=== PATIENT | male | born 1955 | race Caucasian/White ===

== ENCOUNTER → 2017-01-03 | Outpatient (CLI) | payer BC, OTHER ==
--- NOTE | 2017-01-03 09:53 | REP ---
Clinical: Pain with recent trauma. Technique: Internal rotation, external rotation, and Y view of the left shoulder. 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 Findings include cortical irregularity and spurring at the acromioclavicular joint as well as blunting to the glenoid rim and subtle cortical irregularity at the humeral tuberosity. Subacromial space is normal. No periarticular calcifications are identified. No acute fracture or dislocation. Impression: Early moderate arthritic degenerative changes. Signed by Iván Barajas MD 01/03/2017 09:45 A
== END ==
LOC: M WUC 09:23
PROVIDERS: ATTEND Physician Assistant
DX: M25.512 Pain in left shoulder (principal); M19.012 Primary osteoarthritis, left shoulder

== ENCOUNTER → 2019-02-01 | Outpatient (REF) | payer BC ==
[2019-02-01 17:38] LABS: PERCENT SATURATION 15.9 % (19.7-50.0)
== END ==
LOC: M LAB REF 17:07
PROVIDERS: ATTEND Nurse Practitioner Family
DX: D64.9 Anemia, unspecified (principal)

== ENCOUNTER → 2019-03-17 | Outpatient (REF) | payer BC | LOC: M LAB REF 10:18 | PROVIDERS: ATTEND Physician Assistant | DX: M54.5 Low back pain (principal) ==

== ENCOUNTER → 2019-08-08 | Outpatient (CLI) | payer BC, MEDICARE ==
[~2019-08-08] VITALS: Ht 182.9 cm; Wt 122.5 kg
[~2019-08-08] MED LIST: ALBUTEROL SULFATE 2.5 MG/0.5 ML INH NEB SOLN As Ordered ONE; ALBUTEROL SULFATE 2.5 MG/0.5 ML INH NEB SOLN INH ONE; AMIL5TAB4 PO; AMLO10TA5 PO; ASPI81TA85 PO; ATOR40TA75 PO; LABE200T32 PO; LIDOCAINE 1% MDV 20ML VIAL SQ PRN; LIDOCAINE 2% INJ 100 MG/5 ML SDV (FOR ANES.) As Ordered ONE; LISI40TA PO; LR 1,000 ML IV ONE; MIDAZOLAM INJ 2 MG/2 ML VIAL (J2250) As Ordered ONE; OMEP-218 PO; ONDANSETRON 4MG/2ML VIAL (J2405) As Ordered ONE; ROCURONIUM BROMIDE 50 MG/5 ML VIAL As Ordered ONE; ceFAZolin SOD 1 GM in D5W MINI-BAG PLUS 50 ML IV ONE; ceFAZolin SOD 2 GM in IV 1 EA IV ONE; dexameTHASONE 4 MG/ML 1ML VIAL (J1100) As Ordered ONE; fentaNYL 250 MCG/5 ML INJECTION (J3010) As Ordered ONE; propofoL 200 MG/20 ML VIAL As Ordered ONE
[2019-08-08 06:51] VITALS: BP 103/57
== END ==
LOC: M OR 05:54 → UNDOADMIN 05:54 → M LAB 05:54 → EDSTATUS 07:30
PROVIDERS: ATTEND Urology
DX: N28.89 Other specified disorders of kidney and ureter (principal)
CPT/HCPCS: 36415; 86850; 86900; 86901; J2250; J3010

== ENCOUNTER 2019-09-05 05:44 | Inpatient (IN) | payer MEDICARE ==
[2019-09-05] VITALS (8 sets, daily range): BP systolic 117–148; BP diastolic 71–77
[~2019-09-05] VITALS: Ht 182.9 cm; Wt 125.2 kg
[~2019-09-05 05:44] MED LIST changes: -ALBUTEROL SULFATE 2.5 MG/0.5 ML INH NEB SOLN As Ordered ONE; -ALBUTEROL SULFATE 2.5 MG/0.5 ML INH NEB SOLN INH ONE; -LIDOCAINE 1% MDV 20ML VIAL SQ PRN; -LIDOCAINE 2% INJ 100 MG/5 ML SDV (FOR ANES.) As Ordered ONE; -LR 1,000 ML IV ONE; -MIDAZOLAM INJ 2 MG/2 ML VIAL (J2250) As Ordered ONE; -ONDANSETRON 4MG/2ML VIAL (J2405) As Ordered ONE; -ROCURONIUM BROMIDE 50 MG/5 ML VIAL As Ordered ONE; -ceFAZolin SOD 1 GM in D5W MINI-BAG PLUS 50 ML IV ONE; -ceFAZolin SOD 2 GM in IV 1 EA IV ONE; -dexameTHASONE 4 MG/ML 1ML VIAL (J1100) As Ordered ONE; -fentaNYL 250 MCG/5 ML INJECTION (J3010) As Ordered ONE; -propofoL 200 MG/20 ML VIAL As Ordered ONE
[2019-09-05] MEDS ORDERED: ceFAZolin SOD 1 GM in D5W MINI-BAG PLUS 50 ML IV ONE ×8 (06:00)
[2019-09-05] MEDS ORDERED: ceFAZolin SOD 2 GM in IV 1 EA IV ONE ×6 (06:00)
[2019-09-05] MEDS ORDERED: LR 1,000 ML IV ONE (06:00)
[2019-09-05 06:29] LABS: INR 0.99; PROTHROMBIN TIME 12.8 SECONDS (11.8-14.0)
[2019-09-05 06:30] LABS: PARTIAL THROMBOPLASTIN TIME 59.1 SECONDS (25.0-38.4)
[2019-09-05 06:39] LABS: BLOOD UREA NITROGEN 16 MG/DL (7-18); CALCIUM LEVEL 8.7 MG/DL (8.8-10.2); CARBON DIOXIDE LEVEL 27 MEQ/L (21-32); CHLORIDE LEVEL 109 MEQ/L (98-107); CREATININE FOR GFR 0.93 MG/DL (0.70-1.30); GLOMERULAR FILTRATION RATE > 60.0 (>49); GLUCOSE, FASTING 144 MG/DL (70-100); POTASSIUM SERUM 4.2 MEQ/L (3.5-5.1); SODIUM LEVEL 139 MEQ/L (136-145)
[2019-09-05] MEDS ORDERED: QC A650T3 PO (06:41)
[2019-09-05] MEDS ORDERED: MIDAZOLAM INJ 2 MG/2 ML VIAL (J2250) As Ordered ONE (06:50)
[2019-09-05] MEDS ORDERED: ROCURONIUM BROMIDE 50 MG/5 ML VIAL As Ordered ONE ×3 (06:51→10:20)
[2019-09-05] MEDS ORDERED: ONDANSETRON 4MG/2ML VIAL (J2405) As Ordered ONE (06:51)
[2019-09-05] MEDS ORDERED: SUGAMMADEX SODIUM 500 MG/5 ML VIAL (BRIDION) As Ordered ONE (06:51)
[2019-09-05] MEDS ORDERED: dexameTHASONE 4 MG/ML 1ML VIAL (J1100) As Ordered ONE ×2 (06:51→08:09)
[2019-09-05] MEDS ORDERED: LIDOCAINE 2% INJ 100 MG/5 ML SDV (FOR ANES.) As Ordered ONE ×2 (06:51→06:52)
[2019-09-05] MEDS ORDERED: fentaNYL 250 MCG/5 ML INJECTION (J3010) As Ordered ONE (06:51)
[2019-09-05] MEDS ORDERED: ACETAMINOPHEN 1000MG 100ML IV BTL (OFIRMEV) (J0131 PER 10MG) As Ordered ONE (06:52)
[2019-09-05] MEDS ORDERED: propofoL 200 MG/20 ML VIAL As Ordered ONE (06:52)
[2019-09-05] MEDS ORDERED: ePHEDrine SULFATE 25 MG/5 ML(5MG/ML) SYRINGE As Ordered ONE ×3 (06:52→11:39)
[2019-09-05] MEDS ORDERED: PHENYLephrine HCL 500 MCG/5 ML (100MCG/ML) SYRINGE (J2370) As Ordered ONE ×3 (06:52→11:39)
[2019-09-05] MEDS ORDERED: LIDOCAINE 1% SDV INJ 30 ML VIAL As Ordered ONE (07:13)
[2019-09-05] MEDS ORDERED: BUPIVACAINE HCL 0.25% 30 ML VIAL As Ordered ONE (07:13)
[2019-09-05] MEDS ORDERED: ACETAMINOPHEN TAB 650MG DOSE (2X325MG) PO PRN (07:45)
[2019-09-05] MEDS ORDERED: ONDANSETRON 4MG/2ML VIAL (J2405) IV PRN ×2 (07:45→13:00)
[2019-09-05] MEDS ORDERED: MORPHINE 2 MG/ML 1ML VIAL (J2270) IV PRN ×2 (07:45→13:00)
[2019-09-05] MEDS ORDERED: GLYCOPYRROLATE INJ 0.2 MG/ML 2 ML VIAL As Ordered ONE (08:22)
[2019-09-05] MEDS ORDERED: MANNITOL 25% 12.5 GM/50 ML VIAL (J2150) As Ordered ONE (08:35)
[2019-09-05] MEDS ORDERED: fentaNYL 100 MCG/2 ML INJECTION (J3010) IV PRN (13:00)
[2019-09-05] MEDS ORDERED: PERCOCET 5MG/325MG TAB PO PRN (13:00)
[2019-09-05] MEDS ORDERED: LR 1,000 ML IV SCH (13:00)
[2019-09-05 13:10] LABS: HEMATOCRIT 42.9 % (42.0-52.0); HEMOGLOBIN 13.8 g/dl (13.5-17.5); MEAN CORPUSCULAR HEMOGLOBIN 29.2 pg (27.0-33.0); MEAN CORPUSCULAR HGB CONC 32.2 g/dl (32.0-36.5); MEAN CORPUSCULAR VOLUME 90.9 fl (80.0-96.0); PLATELET COUNT, AUTOMATED 246 10^3/uL (150-450); RED BLOOD COUNT 4.72 10^6/uL (4.30-6.10)
[2019-09-05 13:35] LABS: CALCIUM LEVEL 8.7 MG/DL (8.8-10.2); CREATININE FOR GFR 1.28 MG/DL (0.70-1.30); GLOMERULAR FILTRATION RATE 59.9 (>49); POTASSIUM SERUM 4.5 MEQ/L (3.5-5.1)
--- NOTE | 2019-09-05 14:09 | ROOPDOC ---
[facility] Report Of Operation Report of Operation DATE OF PROCEDURE: 09/05/19 PREPROCEDURE DIAGNOSES: Left Renal Neoplasm. POSTPROCEDURE DIAGNOSES: Left Renal Neoplasm. PROCEDURE: Left Robotic-assisted Laparoscopic Partial Nephrectomy with Intraoperative Ultrasound for Tumor Mapping. SURGEON: Abril Lam MD BILL PEDDLER: None ANESTHESIA: General OPERATIVE INDICATIONS: This is a 64 year old male with a 2.2cm enhancing solid left renal neoplasm concerning for malignancy. He was brought to the operating room today for treatment. DESCRIPTION OF PROCEDURE: The patient was brought to the operating room and general anesthesia was induced. Prophylactic antibiotics were infused. A Saha catheter was placed under sterile conditions. The patient was then placed in the right lateral decubitus position. All pressure points were appropriately padded and an axillary roll was placed. He was secured to the table with tape. The patient was then prepped and draped in the usual sterile fashion. The initial incision was for an 8mm port in line with the 11th rib along the lateral rectus margin. A Veress needle was then utilized to achieve the pneumoperitoneum. An 8mm port was then placed in through this incision and through which the camera was inserted. There were no injuries from Veress needle placement or initial trocar placement. The remaining ports were then placed under vision. The left hand robotic port was placed along the costal margin in line with the camera port. Two right hand robotic ports were placed with one just inferior to the camera port, and the other between the anterior-superior iliac spine and the u mbilicus. A 12mm entry level assistant manager port was placed in between the camera port and the more cephalad right hand robotic port. The robot was then docked. We started by dissecting the left colon and the spleen off of Gerota's fascia. At this point the left gonadal vein was identified. This was followed cephalad until the left renal vein was encountered. This was carefully dissected and just inferior and posterior to the renal vein, the left renal artery was identified. This was carefully dissected. Next I had our small arms artillery repairer administer 12.5g of mannitol. Gerota's fascia was then opened and I defatted the kidney. On the superior and posterior aspect of the kidney the tumor was seen. It was mostly exophytic. Ultrasound was then utilized to randy the boundaries of the mass. Next 2 bulldog clamps were placed on the renal artery. We then began resecting the mass. The mass was resected completely and it appeared that we had a good margin. Once the mass was removed, the renorrhaphy was performed first by ligating all vessels in the base of resection with a 2-0 vicryl suture using figure of eight stitches. The capsule of the kidney was then reapproximated using 0-vicryl suture with Weck clips to cinch down the suture. Once this was done the clamps were removed and hemostasis was excellent. The warm ischemia time was 23 minutes. Next Reece was applied to the resection bed and the tumor was placed in an endocatch bag. A Junaid Neal drain was positioned just medial to the kidney. The robot was undocked after confirming hemostasis within the abdomen. The specimen was removed from the abdomen through the 12mm entry level assistant manager port site. A Sam fascial closure devise was utilized to place #0 Vicryl ties through the fascia of the entry level assistant manager port site. We then removed all the ports under direct vision and there was no bleeding from any of the port sites. At this point, all the incisions were thoroughly irrigated. We then closed the skin of each site using a running #4-0 subcuticular Monocryl stitch. The Junaid Neal drain was secured to the skin usint #3-0 Ethilon suture. Local anesthetic was then applied to each incision and Dermabond was then applied and this marked the conclusion of the procedure. The patient was then taken out of the left lateral decubitus position, awakened from anesthesia and transported to the recovery room in stable condition. ESTIMATED BLOOD LOSS: 100 mL INTRAOPERATIVE COMPLICATIONS: None SPECIMENS: Left renal neoplasm WARM ISCHEMIA TIME: 23 minutes NORMAL LEFT RENAL PARENCHYMA SPARED: approximately 95% PLAN: The patient will be admitted to the hospital postoperatively and he will be discharged home once his renal function is stable and he is tolerating a regular diet. ABRIL LAM MD Sep 05, 2019 13:06
[2019-09-05] MEDS: NS 1,000 ML IV SCH (14:23)
[2019-09-05] MEDS: ceFAZolin SOD 1 GM in D5W MINI-BAG PLUS 50 ML IV SCH ×2 (16:22→23:32)
[2019-09-05] MEDS: PERCOCET 5MG/325MG TAB PO PRN (19:37)
[2019-09-05] MEDS: aMILoride 5 MG TAB PO SCH (20:25)
[2019-09-05] MEDS: LABETALOL 200 MG TAB PO SCH (20:26)
[2019-09-05] MEDS: DOCUSATE SODIUM 100 MG CAP PO SCH (20:26)
[2019-09-05] MEDS: lisinopriL 40 MG TAB PO SCH (20:26)
[2019-09-06] VITALS (7 sets, daily range): BP systolic 136–165; BP diastolic 69–82
[2019-09-06] MEDS: PERCOCET 5MG/325MG TAB PO PRN ×3 (01:53→18:50)
[2019-09-06] MEDS: NS 1,000 ML IV SCH (04:52)
[2019-09-06 06:21] LABS: HEMATOCRIT 43.2 % (42.0-52.0); HEMOGLOBIN 14.2 g/dl (13.5-17.5); MEAN CORPUSCULAR HEMOGLOBIN 30.1 pg (27.0-33.0); MEAN CORPUSCULAR HGB CONC 32.9 g/dl (32.0-36.5); MEAN CORPUSCULAR VOLUME 91.5 fl (80.0-96.0); PLATELET COUNT, AUTOMATED 254 10^3/uL (150-450); RED BLOOD COUNT 4.72 10^6/uL (4.30-6.10); WHITE BLOOD COUNT 18.8 10^3/uL (4.0-10.0)
[2019-09-06 06:46] LABS: BLOOD UREA NITROGEN 14 MG/DL (7-18); CALCIUM LEVEL 8.8 MG/DL (8.8-10.2); CARBON DIOXIDE LEVEL 28 MEQ/L (21-32); CHLORIDE LEVEL 106 MEQ/L (98-107); GLOMERULAR FILTRATION RATE > 60.0 (>49); GLUCOSE, FASTING 135 MG/DL (70-100); POTASSIUM SERUM 4.9 MEQ/L (3.5-5.1); SODIUM LEVEL 138 MEQ/L (136-145)
--- NOTE | 2019-09-06 08:31 | IPNPDOC ---
Subjective Review oF Systems Chief Complaint The patient is a 64-year-old male admitted with a reason for visit of Renal Mass. Events since Last Encounter No acute events o/n. Good pain control. Ambulated last night w/o difficulty. No n/v. No f/c/ns. Objective Physical Examination General Exam: Alert, Cooperative, No Acute Distress ABDOMEN EXAM: Soft, Tenderness (mild), Other (incisions clean/dry/intact; KATHERINE w/ serosanguinous output) Neuro Exam: Normal Speech Psych Exam: Mental status NL, Mood NL Other physical findings catheter draining clear urine Vital Signs/I&O Vital Signs Date Time Temp Pulse Resp B/P (MAP) Pulse Ox O2 Delivery O2 Flow Rate FiO2 09/06/19 07:10 18 09/06/19 06:00 97.4 77 139/72 (94) 98 Nasal Cannula 2.0 I&O- Last 24 Hours up to 6 AM 09/06/19 05:59 Intake Total 2650 ml Output Total 1880 ml Balance 770 ml Laboratory Data Labs 24H Laboratory Tests 2 09/05/19 12:53: Nucleated Red Blood Cells % (auto) 0.0, Anion Gap 6L, Glomerular Filtration Rate 59.9, Calcium Level 8.7L 09/06/19 05:56: Nucleated Red Blood Cells % (auto) 0.0, Anion Gap 4L, Glomerular Filtration Rate > 60.0, Calcium Level 8.8 CBC/BMP Laboratory Tests 09/05/19 12:53 09/06/19 05:56 Assessment/Plan Date Seen The patient was seen on 09/06/19. Patient Summary This is a 64 y/o M POD1 s/p L robotic partial nephrectomy. Doing well. Hb stable at 14.2. Cr 1. Good UOP. Plan/VTE VTE Prophylaxis Ordered?: Yes VTE Exclusion Mechanical Proph: N/A:VTE Prophy Ordered VTE Exclusion Pharmacological: N/A:VTE Prophy Ordered Plan/Urinary Catheter Urinary Catheter: D/C Saha Plan - d/c Saha - start prophylactic lovenox - cont home meds - d/c IVF - strict I/Os - percocet prn pain - SCDs when in bed - ambulate - advance diet as tolerated - likely discharge home tomorrow if Hb remains stable on lovenox ABRIL LAM MD Sep 06, 2019 08:31
[2019-09-06] MEDS: aMILoride 5 MG TAB PO SCH ×2 (09:11→20:23)
[2019-09-06] MEDS: DOCUSATE SODIUM 100 MG CAP PO SCH ×2 (09:11→20:24)
[2019-09-06] MEDS: OMEPRAZOLE 20 MG CAP PO SCH (09:11)
[2019-09-06] MEDS: ENOXAPARIN 40 MG/0.4 ML SYRINGE (J1650) SC SCH (09:11)
[2019-09-06] MEDS: amLODIPine 10 MG TAB PO SCH (12:13)
[2019-09-06] MEDS: LABETALOL 200 MG TAB PO SCH ×2 (12:13→20:24)
[2019-09-06] MEDS: lisinopriL 40 MG TAB PO SCH ×2 (12:27→20:24)
[2019-09-06] MEDS ORDERED: PERCOCET PO (14:05)
[2019-09-06] MEDS ORDERED: DOCU100C16 PO (14:05)
[2019-09-06] MEDS ORDERED: LOVE1INJ SC (14:05)
[2019-09-07] MEDS: PERCOCET 5MG/325MG TAB PO PRN ×3 (00:17→13:42)
[2019-09-07 02:00] VITALS: BP 121/67
[2019-09-07 06:00] VITALS: BP 139/76
[2019-09-07 06:29] LABS: HEMATOCRIT 41.8 % (42.0-52.0); HEMOGLOBIN 13.8 g/dl (13.5-17.5); MEAN CORPUSCULAR HEMOGLOBIN 30.1 pg (27.0-33.0); MEAN CORPUSCULAR VOLUME 91.1 fl (80.0-96.0); PLATELET COUNT, AUTOMATED 241 10^3/uL (150-450); RED BLOOD COUNT 4.59 10^6/uL (4.30-6.10); WHITE BLOOD COUNT 14.3 10^3/uL (4.0-10.0)
[2019-09-07 07:01] LABS: BLOOD UREA NITROGEN 21 MG/DL (7-18); CARBON DIOXIDE LEVEL 26 MEQ/L (21-32); CHLORIDE LEVEL 104 MEQ/L (98-107); CREATININE FOR GFR 0.89 MG/DL (0.70-1.30); GLOMERULAR FILTRATION RATE > 60.0 (>49); GLUCOSE, FASTING 129 MG/DL (70-100); POTASSIUM SERUM 4.3 MEQ/L (3.5-5.1); SODIUM LEVEL 137 MEQ/L (136-145)
--- NOTE | 2019-09-07 08:04 | IPNPDOC ---
Subjective Review oF Systems Chief Complaint The patient is a 64-year-old male admitted with a reason for visit of Renal Mass. Events since Last Encounter No acute events. Good pain control. No n/v. Ambulating well. No f/c/ns. Objective Physical Examination General Exam: Alert, Cooperative, No Acute Distress ABDOMEN EXAM: Soft, Tenderness (mild), Other (incisions clean/dry/intact; KATHERINE w/ serous output) Skin Exam: Nl turgor and temperature Neuro Exam: Normal Speech Psych Exam: Mental status NL, Mood NL Vital Signs/I&O Vital Signs Date Time Temp Pulse Resp B/P (MAP) Pulse Ox O2 Delivery O2 Flow Rate FiO2 09/07/19 06:00 97.9 76 18 139/76 (97) 98 Room Air 09/06/19 10:00 2.0 I&O- Last 24 Hours up to 6 AM 09/07/19 05:59 Intake Total 2310 ml Output Total 2435 ml Balance -125 ml Laboratory Data Labs 24H Laboratory Tests 2 09/07/19 06:00: Nucleated Red Blood Cells % (auto) 0.0, Anion Gap 7L, Glomerular Filtration Rate > 60.0, Calcium Level 9.0 CBC/BMP Laboratory Tests 09/07/19 06:00 Assessment/Plan Date Seen The patient was seen on 09/07/19. Patient Summary This is a 64 y/o M POD2 s/p L robotic partial nephrectomy. Hb stable at 13.8. Cr 0.9. Good UOP. Normal KATHERINE output. Plan/VTE VTE Prophylaxis Ordered?: Yes VTE Exclusion Mechanical Proph: N/A:VTE Prophy Ordered VTE Exclusion Pharmacological: N/A:VTE Prophy Ordered Plan - d/c KATHERINE drain - percocet prn pain - cont home meds - lovenox - SCDs when in bed - ambulate - strict I/Os - regular diet - discharge home today ABRIL LAM MD Sep 07, 2019 08:04
[2019-09-07 08:20] VITALS: BP 139/76
[2019-09-07] MEDS: aMILoride 5 MG TAB PO SCH (08:20)
[2019-09-07] MEDS: lisinopriL 40 MG TAB PO SCH (08:20)
[2019-09-07] MEDS: ENOXAPARIN 40 MG/0.4 ML SYRINGE (J1650) SC SCH (08:20)
[2019-09-07] MEDS: amLODIPine 10 MG TAB PO SCH (08:20)
[2019-09-07] MEDS: OMEPRAZOLE 20 MG CAP PO SCH (08:20)
[2019-09-07] MEDS: LABETALOL 200 MG TAB PO SCH (08:20)
[2019-09-07] MEDS: DOCUSATE SODIUM 100 MG CAP PO SCH (08:20)
[2019-09-07 10:00] VITALS: BP 155/72
--- NOTE | 2019-09-07 17:50 | DSES ---
DATE OF ADMISSION: 09/05/2019 DATE OF DISCHARGE: 09/07/2019 ADMISSION DIAGNOSIS: Left renal neoplasm. DISCHARGE DIAGNOSIS: Left renal cell carcinoma. ADMITTING PHYSICIAN: Zaid Heller MD DISCHARGING PHYSICIAN: Zaid Heller MD PROCEDURES PERFORMED: Robotic-assisted laparoscopic partial nephrectomy on 09/05/2019. HISTORY OF PRESENT ILLNESS: This is a 64-year-old male who was found to have an enhancing approximately 2-1/2 cm mass in the left kidney concerning for malignancy. He underwent the above-listed procedure for treatment and was admitted to the hospital postoperatively. HOSPITALIZATION COURSE: The patient was admitted to the hospital after undergoing the above-listed procedure. His postoperative course was unremarkable. On postoperative day one, all of his laboratories were within normal limits. He had excellent urine output. His catheter was removed and he voided without any difficulty. On postoperative day one, he was started on prophylactic Lovenox and he started ambulating. By postoperative day two, all of his laboratories remained within normal limits. Specifically his hemoglobin remained stable at approximately 14. He continued to have urine output and had normal output from his Junaid-Neal drain. He was tolerating a regular diet by postoperative day two and his pain was very well-controlled on oral pain medications. He was deemed ready for discharge home on postoperative day two. He was discharged home after his Junaid-Neal drain was removed. He will followup in the urology clinic in approximately one week for a postoperative visit and to discuss his pathology results. ALYCIA
== END 2019-09-07 14:05 | disposition home or self-care (01) | DRG 658 ==
LOC: M OR 05:44 → M MSPAV 14:00
PROVIDERS: ADMIT Urology; ATTEND Urology
PROC: 8E0W4CZ Robotic Assisted Procedure of Trunk Region, Percutaneous Endoscopic Approach (ICD-10-PCS; 2019-09-05)
PROC: 0TB14ZZ Excision of Left Kidney, Percutaneous Endoscopic Approach (ICD-10-PCS; principal; 2019-09-05 07:30)
DX: C64.2 Malignant neoplasm of left kidney, except renal pelvis (principal); E11.9 Type 2 diabetes mellitus without complications; Z88.8 Allergy status to other drugs, medicaments and biological substances; Z87.891 Personal history of nicotine dependence; Z79.82 Long term (current) use of aspirin; Z79.899 Other long term (current) drug therapy

== ENCOUNTER → 2019-09-18 | Outpatient (CLI) | payer MEDICARE, BC ==
[~2019-09-18] MED LIST changes: +DOCU100C16 PO; +LOVE1INJ SC; +PERCOCET PO; +QC A650T3 PO
[2019-09-18 17:51] LABS: HEMATOCRIT 40.8 % (42.0-52.0); HEMOGLOBIN 13.2 g/dl (13.5-17.5); MEAN CORPUSCULAR HEMOGLOBIN 29.8 pg (27.0-33.0); MEAN CORPUSCULAR HGB CONC 32.4 g/dl (32.0-36.5); MEAN CORPUSCULAR VOLUME 92.1 fl (80.0-96.0); PLATELET COUNT, AUTOMATED 346 10^3/uL (150-450); RED BLOOD COUNT 4.43 10^6/uL (4.30-6.10); WHITE BLOOD COUNT 11.8 10^3/uL (4.0-10.0)
[2019-09-18 18:18] LABS: BLOOD UREA NITROGEN 19 MG/DL (7-18); CALCIUM LEVEL 9.3 MG/DL (8.8-10.2); CARBON DIOXIDE LEVEL 30 MEQ/L (21-32); CHLORIDE LEVEL 108 MEQ/L (98-107); CREATININE FOR GFR 1.06 MG/DL (0.70-1.30); GLOMERULAR FILTRATION RATE > 60.0 (>49); GLUCOSE, FASTING 107 MG/DL (70-100); POTASSIUM SERUM 4.4 MEQ/L (3.5-5.1); SODIUM LEVEL 140 MEQ/L (136-145)
== END ==
LOC: M PLALAB 13:58
PROVIDERS: ATTEND Urology
DX: C64.2 Malignant neoplasm of left kidney, except renal pelvis (principal)

== ENCOUNTER → 2020-04-29 | Outpatient (CLI) | payer MEDICARE ==
[~2020-04-29] MED LIST changes: -AMLO10TA5 PO; +AMLO1TAB25 PO; -ASPI81TA85 PO; +ASPI81TA86 PO; +ISOVUE-370 76% 100ML VIAL As Ordered ONE
--- NOTE | 2020-04-29 14:31 | REP ---
INDICATION: RENAL CELL CA, LT KIDNEY CT 1ST XR 2ND COMPARISON: None. TECHNIQUE: PA/Lateral FINDINGS: Lungs: Clear, no infiltrate. Heart: Normal in size. Mediastinum: Mediastinal silhouette unremarkable. Pleural angles: Unremarkable.. Bones and soft tissues: There are degenerative changes of the spine. There are 2 consecutive [id number] compression deformities of midthoracic vertebral bodies which are of indeterminate age. IMPRESSION: No acute pulmonary disease. Two moderate compression deformities of midthoracic vertebral bodies of indeterminate age. <Electronically signed by Terry Aldana > 04/29/20 [id number]
--- NOTE | 2020-04-30 11:03 | REP ---
INDICATION: RENAL CELL CA, LT KIDNEY CT 1ST XRAY 2ND. Patient relates prior surgery left kidney. COMPARISON: Comparison sonography May 14, 2016. TECHNIQUE: Pre and multiphase postcontrast abdominal imaging is acquired. 3 mm axial slices are carried out. Coronal and sagittal MPR images are generated. 100 mL of intravenous Isovue 370 is administered. FINDINGS: Preliminary digital eyeglass frames polisher radiograph demonstrates a normal bowel gas pattern. The lung bases are clear on axial CT images. No pleural effusion is seen. There is a small sliding-type hiatal hernia. No focal liver lesion is seen. The liver and spleen are normal in size normal genius in texture. There is an opaque partially calcified gallstone near the neck of the gallbladder. This gallstone measures 2.1 cm in diameter. Normal right adrenal gland. There is a small nodule in the anteromedial limb of the left adrenal gland measuring 1.6 cm in diameter. This appears to contain macroscopic fat with substantially negative Hounsfield units. Mean Hounsfield unit density in the radiolucent portion of this is -12 consistent with benign adenoma. There is a second small low-density lesion in the inferior aspect of the lateral limb of the left adrenal. This also contains macroscopic fat with mean Hounsfield unit density of -8.4 Hounsfield units. This is also consistent with a benign adenoma. This measures 1.7 cm. There is postoperative fibrosis in the perinephric fat about the upper pole of the left kidney status post partial nephrectomy change. There is a small cyst in the upper pole anterior to this. The cyst measures 1.2 cm in greatest diameter. No evidence of abnormal renal mass lesion on either side. There is a 1 cm cyst in the right mid kidney. There is 0.4 cm calculus in the lower pole of the right kidney. Vascular calcification is seen. Normal caliber aorta. No retroperitoneal mass or adenopathy is seen. No abnormality is noted in the pancreas. Delayed phase acquisition shows no filling defect in the collecting system it of either kidney and unremarkable proximal ureters. No bony destructive lesion. IMPRESSION: Post partial nephrectomy change upper pole left kidney. No evidence of recurrence or residual mass. Small bilateral renal cysts. Intrarenal nephrolithiasis right kidney without hydronephrosis. Cholelithiasis. Small hiatal hernia. Two very small benign left adrenal adenomas. <Electronically signed by Javier Pritchard > 04/30/20 [id number]
== END ==
LOC: M RAD 12:59
PROVIDERS: ATTEND Urology
DX: C64.2 Malignant neoplasm of left kidney, except renal pelvis (principal)
CPT/HCPCS: 71046; 74170; Q9967

== ENCOUNTER → 2021-05-12 | Outpatient (CLI) | payer MEDICARE ==
[~2021-05-12] MED LIST changes: +GASTROGRAFIN SOLUTION 30ML (Q9963) As Ordered ONE; -LISI40TA PO; +LISI40TA4 PO
--- NOTE | 2021-05-12 16:37 | REP ---
INDICATION: RENAL CELL CA- CT AFTER COMPARISON: 04/29/2020 TECHNIQUE: PA and lateral. FINDINGS: The mediastinum and cardiac silhouette are stable. The lung chung demonstrate stable chronic changes without acute consolidation, effusion, or pneumothorax. The skeletal structures demonstrate age-related changes and chronic mild compression deformities at midthoracic vertebral bodies unchanged from 2020. IMPRESSION: No acute cardiopulmonary process. <Electronically signed by Iván Barajas > 05/12/21 [id number]
--- NOTE | 2021-05-13 09:26 | REP ---
INDICATION: RENAL CELL - XRAY FIRST. COMPARISON: 04/29/2020 the only prior TECHNIQUE: Standard helical technique before and after the intravenous administration of 100 cc Isovue 370. Oral bowel preparatory contrast was administered prior to the exam. FINDINGS: There is no significant change in the lung bases. The liver, spleen, and pancreas are unchanged and again seen to be within normal limits. Note is again made of cholelithiasis and stable left adrenal gland nodules. The kidneys are unchanged. Postoperative changes are again seen involving the left kidney status quo. There is no evidence of a new enhancing renal mass. There are renal cysts which are stable. There is unchanged nonobstructing nephrolith in the inferior pole the right kidney. The abdominal aorta and para-aortic regions are unchanged. No adenopathy has developed. There is no significant change in appearance of the bowel loops or the mesenteries. There is descending colon and sigmoid colon diverticulosis status quo. There is no free fluid or free air. There is no evidence of a mass or adenopathy. Bone window technique throughout the examination shows no significant change in appearance of the osseous structures. IMPRESSION: There is no evidence of acute disease or significant change compared to the prior exam with findings as described above. <Electronically signed by Xu Cortés > 05/13/21 [id number]
== END ==
LOC: M RAD 16:11
PROVIDERS: ATTEND Urology
DX: C64.2 Malignant neoplasm of left kidney, except renal pelvis (principal); E27.9 Disorder of adrenal gland, unspecified
CPT/HCPCS: 71046; 74177; Q9963; Q9967

== ENCOUNTER → 2022-06-23 | Outpatient (CLI) | payer MEDICARE ==
[~2022-06-23] MED LIST changes: -GASTROGRAFIN SOLUTION 30ML (Q9963) As Ordered ONE; -LABE200T32 PO; +LABE200T5 PO; +OMEP-173 PO; -OMEP-218 PO
== END ==
LOC: M RAD 13:10
PROVIDERS: ATTEND Urology
DX: C64.2 Malignant neoplasm of left kidney, except renal pelvis (principal)
CPT/HCPCS: 71046; 74170; Q9967

== ENCOUNTER → 2022-08-31 | Outpatient (CLI) | payer MEDICARE ==
[~2022-08-31] MED LIST changes: +ATOR80TA59 PO; +ECOT81TA5 PO; -ISOVUE-370 76% 100ML VIAL As Ordered ONE; +LABE20TAB PO; +METF500T13 PO; +OMEP40CA5 PO; +SILD100T7 PO; +TIZA10TA PO
== END ==
LOC: M LABSMTC 11:54
PROVIDERS: ATTEND Anesthesiology
DX: Z01.812 Encounter for preprocedural laboratory examination (principal)

== ENCOUNTER 2022-09-03 11:15 | Day surgery (SDC) | payer MEDICARE ==
[~2022-09-03] VITALS: Ht 182.9 cm; Wt 132.0 kg
[~2022-09-03 11:15] MED LIST changes: +LIDOCAINE 2% 100MG/5ML SDV (FOR ANES.) As Ordered ONE; +NS 1,000 ML IV ONE; +propofoL 200 MG/20 ML VIAL As Ordered ONE
[2022-09-03 13:30] VITALS: BP 122/86
== END 2022-09-03 13:34 | disposition home or self-care (01) ==
LOC: M OPP 11:15
PROVIDERS: ATTEND Surgery
DX: Z12.11 Encounter for screening for malignant neoplasm of colon (principal); K57.30 Diverticulosis of large intestine without perforation or abscess without bleeding; K64.2 Third degree hemorrhoids; I10 Essential (primary) hypertension; E78.00 Pure hypercholesterolemia, unspecified; E11.9 Type 2 diabetes mellitus without complications; Z79.02 Long term (current) use of antithrombotics/antiplatelets; Z79.82 Long term (current) use of aspirin; Z79.84 Long term (current) use of oral hypoglycemic drugs; Z79.899 Other long term (current) drug therapy; Z88.8 Allergy status to other drugs, medicaments and biological substances; Z87.891 Personal history of nicotine dependence

== ENCOUNTER → 2023-06-29 | Outpatient (CLI) | payer MEDICARE ==
[~2023-06-29] MED LIST changes: -LIDOCAINE 2% 100MG/5ML SDV (FOR ANES.) As Ordered ONE; -NS 1,000 ML IV ONE; -propofoL 200 MG/20 ML VIAL As Ordered ONE
[2023-06-29 08:44] LABS: BLOOD UREA NITROGEN 14 MG/DL (9-23); CALCIUM LEVEL 9.4 MG/DL (8.3-10.6); CARBON DIOXIDE LEVEL 28 MMOL/L (20-31); CHLORIDE LEVEL 107 MMOL/L (98-107); CREATININE FOR GFR 0.75 MG/DL (0.70-1.30); GLOMERULAR FILTRATION RATE > 60.0 (>42); GLUCOSE, FASTING 118 MG/DL (74-106); POTASSIUM SERUM 4.5 MMOL/L (3.5-5.1); SODIUM LEVEL 142 MMOL/L (136-145)
[2023-06-30 16:11] LABS: PSA % FREE 7.9 % (.); PSA FREE 0.41 ng/mL; PSA TOTAL 5.2 ng/mL (0.0-4.0)
== END ==
LOC: M RAD 06:52
PROVIDERS: ATTEND Urology
DX: C64.2 Malignant neoplasm of left kidney, except renal pelvis (principal); R97.20 Elevated prostate specific antigen [PSA]

== ENCOUNTER → 2024-08-08 | Outpatient (CLI) | payer MEDICARE ==
[~2024-08-08] MED LIST changes: +ISOVUE-370 76% 100ML VIAL As Ordered ONE
== END ==
LOC: M RAD 13:54
PROVIDERS: ATTEND Urology
DX: C64.2 Malignant neoplasm of left kidney, except renal pelvis (principal); N20.0 Calculus of kidney; N28.1 Cyst of kidney, acquired; K76.0 Fatty (change of) liver, not elsewhere classified; K80.20 Calculus of gallbladder without cholecystitis without obstruction; D35.02 Benign neoplasm of left adrenal gland; Z90.5 Acquired absence of kidney
CPT/HCPCS: 74170; Q9967

== ENCOUNTER → 2024-09-25 | Outpatient (CLI) | payer MEDICARE ==
[~2024-09-25] MED LIST changes: -ISOVUE-370 76% 100ML VIAL As Ordered ONE; +PROHANCE 279.3MG/ML 15ML VIAL As Ordered ONE; +PROHANCE 279.3MG/ML 5ML VIAL As Ordered ONE
== END ==
LOC: M RAD 07:27
PROVIDERS: ATTEND Urology
DX: R97.20 Elevated prostate specific antigen [PSA] (principal); R93.89 Abnormal findings on diagnostic imaging of other specified body structures
CPT/HCPCS: 72197; A9576